=== PATIENT | male | born 1975 | race Caucasian/White ===

== ENCOUNTER 2017-10-20 06:09 | Inpatient (IN) | payer MEDICAID, OTHER ==
[2017-10-20 06:10] VITALS: BMI 25.8
[2017-10-20 06:24] VITALS: O2SAT 98
--- NOTE | 2017-10-20 06:38 | ED PDOC ---
Psych Transfer Clearance - Clearance Statement Clearance Statement: Reviewed vital signs, lab results and transfer papers. Patient clinically stable for psychiatric admission.
[2017-10-20] MEDS ORDERED: Alum-Mag Hydrox-Simethicone Susp (30 mL) PO PRN (06:43)
[2017-10-20] MEDS ORDERED: DiphenhydrAMINE 50 mg/ml Inj IM PRN (06:43)
[2017-10-20] MEDS ORDERED: Magnesium Hydroxide Susp 30 ml UD PO PRN (06:43)
--- NOTE | 2017-10-20 06:44 | PCM.BM ---
<Bailee Nuno - Last Filed: 10/20/17 06:42> Treatment Plan Problems - Problems identified on initial assessmt Medication nonadherence Date Initiated: 10/20/17 Time Initiated: 06:43 Assessment reference: NA Status: Active Hopelessness/ Helplessness Date Initiated: 10/20/17 Time Initiated: 06:43 Assessment reference: NA Status: Active Treatment assets and liabiliti Patient Assests: cooperative, ADL independent, negotiates basic needs Patient Liabilities: poor support system, substance abuse - Milieu Protocol Maintain good personal hygiene: daily Encourage regular showers, every shift Remind patient to perform daily oral care Conduct patient checks and document Observation sheet: Q15 minutes Maintain personal safety: every shift Educate patient to report safety concerns to staff, every shift Monitor environment for contraband/sharps Medication safety: Monitor for expected outcome, potential side effects: every shift, Assess barriers to learning: every shift, Assess readiness for medication education: every shift <Jonathan Tangiana - Last Filed: 10/23/17 13:47> Treatment assets and liabiliti Patient Assests: adapts well, cooperative, resourceful, self-reliant, ADL independent, negotiates basic needs, cognitively intact Patient Liabilities: poor support system, substance abuse Family Contact Family involvement: Famliy/SO not involved Family contact: Family has been contacted by patient, Patient declines to allow family contact at present - Goals for Treatment Patient goals for treatment: Patient to continue stabilization on 3NP through medication management and group/supportive therapy. Patient to be encouraged to attend groups regularly to promote self-awareness, sobriety, and improve insight , coping skills and self-esteem. Patient to be provided with referral for appropriate level of aftercare to reduce risk of future hospitalizations and ensure safety in the community. Discharge/Continuing Care - Education Needs Education Needs: Patient Medication, Patient Coping Skills, Patient Anger Management skills, Patient Community resources, Patient Aftercare Safety Plan - Discharge Discharge Criteria: Tolerates medication w/o severe side effects, Free of Suicidal thoughts, Free of agitation, Normal sleep pattern, Ability to care for self, No longer exhibiting s/s of withdrawal, Reduction of target symptoms Discharge to:: Home - Treatment Team Participation Patient/Family/SO Statement: 10/23/17 13:51 Patient attended tx team this morning to discuss progress on 3NP and aftercare. Patient initially agreeable to having referrals faxed to [facility] ( specifically/exclusively [place] location). Transcriptionist explained benefits of having referral faxed to other facilities to increase chances of acceptance into a program. Patient ambivalent but agreeable. Transcriptionist notified patient that referrals were faxed to [facility] and [facility] and explained that the [place] location no longer provides substance abuse tx. Transcriptionist offered to have referrals faxed to alternate [facility] locations. Patient stated that he has has trouble being admitted to rehabs from inpatient psychiatric units and expressed wanting to explore substance abuse tx with [facility] independently upon discharge. Transcriptionist explained that information for the rehabs that referral have been faxed to will be provided for patient upon discharge. Patient strongly encouraged to follow-up with inpatient rehabs upon discharge to maintain sobriety. Patient emphasized importance of being discharged with outpatient services to ensure safety/functioning in the community and reduce risk of future hospitalizations. Patient agreeable to [facility]. Patient reports improvement in depression and anxiety since admission. Patient denies AH/VH. Patient denies SI/HI. Patient brighter and more visible on 3NP. Patient anticipated for discharge on 10/24. Discussed with Family/SO: No Was Patient/Family/SO present at Treatment Team Meeting: Yes <Sunni Thompson - Last Filed: 10/24/17 08:44> - Diagnosis (1) Depression Status: Acute Interventions: 10/24/17 08:43 psychotherapy pharmacotherapy
[2017-10-20 08:26] LABS: HDL CHOLESTEROL 41 MG/DL (30-70)
[2017-10-20 08:37] LABS: LDL CHOLESTEROL 108 mg/dL (0-129)
--- NOTE | 2017-10-20 12:25 | PCM.PSYCH ---
Initial Psychiatric Evaluation - Initial Psychiatric Evaluation Legal Status: Capacity Chief Complaint (in patient's own words): I wanted to jump off the bridge Patient's Reaction to Hospitalization: pt requested help History of Present Illness and Precipitating Events: Patient is a 42 year old , single, unemployed, homeless, with a history of depressive disorder, opioid use disorder, cocaine use disorder who came to the ED with depressed mood and suicidal ideation pt reported he recently relapsed on heroin last use day before evaluation, ten bags, also used unspecified amount of cocaine, started to have active suicidal ideations came to hospital seeking help pt denied command hallucinations denied active suicidal ideations or plan on the unit . Current Medications: Active Medications Generic Name Dose Route Start Last Admin Trade Name Freq PRN Reason Stop Dose Admin Acetaminophen 650 mg 10/20/17 06:43 Tylenol 325mg Tab PO Q4 PRN Pain, moderate (4-7) Al Hydrox/Mg Hydrox/Simethicone 30 ml 10/20/17 06:43 Maalox Plus 30 Ml PO Q4 PRN Dyspepsia Clonidine HCl 0.1 mg 10/20/17 09:00 Catapres PO 10/23/17 09:01 Q8 ZACHARY Diphenhydramine HCl 50 mg 10/20/17 06:43 Benadryl IM Q6 PRN Extrapyramidal S/S Unable PO Diphenhydramine HCl 50 mg 10/20/17 06:43 Benadryl PO Q6 PRN Extrapyramidal Symptoms Haloperidol 5 mg 10/20/17 06:43 Haldol PO Q4 PRN Agitation Ibuprofen 800 mg 10/20/17 06:54 Motrin Tab PO 10/23/17 06:58 Q6 PRN Pain, Mild (1-3) Loperamide HCl 2 mg 10/20/17 06:54 Imodium PO Q4 PRN After Loose Bowel Movement Lorazepam 2 mg 10/20/17 06:43 Ativan IM Q4 PRN Anxiety/Agitation,Unable PO Lorazepam 1 mg 10/20/17 06:43 Ativan PO Q4 PRN Anxiety/Agitation Magnesium Hydroxide 30 ml 10/20/17 06:43 Milk Of Magnesia PO HS PRN Constipation Multivitamins/Minerals 1 tab 10/20/17 09:00 Therapeutic-M Tab PO DAILY ZACHARY Past Psychiatric History - Past Psychiatric History Explanation of prior treatment: multiple inpatient hospitalizations fro depression and detox History of ETOH/Drug Use: hx of cocaine opiate and cannabis abuse Pertinent Medical Hx (Current Medical&Sleep Prob, Allergies): Allergies Allergy/AdvReac Type Severity Reaction Status Date / Time No Known Allergies Allergy Verified 02/28/16 01:11 ARIPiprazole [Abilify] 10 mg PO HS #30 tab 05/26/17 Sertraline [Zoloft] 100 mg PO DAILY #30 tab 05/26/17 traZODone [Desyrel] 100 mg PO DAILY #30 tab 05/26/17 Mental Status Examination - Personal Presentation Personal Presentation: Looks older than stated age - Affect Affect: Constricted, Depressed - Motor Activity Motor Activity: Psychomotor Retardation - Reliability in Providing Information Reliability in Providing Information: Poor, due to altered mood - Speech Speech: Relevant - Mood Mood: Depressed, Anxious - Formal Thought Process Formal Thought Process: Circumstantial - Obsessions/Compulsions Obsessions: No Compulsions: No - Cognitive Functions Orientation: Person, Place Sensorium: Alert Attention/Concentration: Attentive Abstract Thinking: [place] Judgement: Imparied, as evidence by: Poor judgement, Imparied, as evidence by: Lack of insight into illness - Risk Risk: Withdrawal, Diminished functioning - Strength & Assets Inventory Strength & Assets Inventory: Life experience - Limitations Additional comments: homeless DSM 5 DX - DSM 5 DSM 5 Diagnosis: 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
[2017-10-20] MEDS: Multivitamin With Minerals Tab PO SCH (14:56)
[2017-10-21 06:41] LABS: T4 9.65 ug/dl (5.5-11.0)
--- NOTE | 2017-10-21 11:37 | PCM.PYCHPN ---
Psychiatric Progress Note - Psychiatric Progress Note Patient seen today, length of contact: pt evaluated discussed with team chart reviewed Patient Chief Complaint: I am so depressed, i want inpatient rehab, i cant continue like that Problems Identified/Issues Discussed: pt seen in his room isolative , continues to feel depressed, low energy, anhedonia, pt continues to have body aches because of the withdrawal discussed with pt starting inpatient rehab on discharge , pt agrees, pt denied any current suicidal or homicidal ideations denied perceptual disturbances no reported side effects of medications Medical Problems: multiple inpatient hospitalizations fro depression and detox DSM 5 Symptoms Update: cocaine induced mood disorder with depressive features on withdrawal opiate use disorder depression Medication Change: Yes (start flexeril) Medical Record Reviewed: Yes Mental Status Examination - Cognitive Function Orientation: Person, Place Attention: Poor Concentration: Poor Association: WNL Fund of Knowledge: Poor Decription of patient's judgement and insights: partial insight poor judgment - Mood Mood: Depressed, Anxious - Affect Affect: Constricted, Depressed - Speech Speech: Soft - Formal Thought Process Formal Thought Process: Circumstantial Psychotic Thoughts and Behaviors: pt denied any current perceptual disturbances, non elicited - Suicidal Ideation Suicidal Ideation: No - Homicidal Ideation Homicidal Ideation: No Goal/Treatment Plan - Goal/Treatment Plan Progress Toward Problem(s) and Goals/Treatment Plan: continue clonidine protocol and monitor vitals for symptoms and signs of withdrawal increase seroquel 200mg qhs start flexiril prn for muscle aches motivational and group therapy
--- NOTE | 2017-10-21 11:49 | CP.PCM.CON ---
History of Present Illness - History of Present Illness History of Present Illness: Reason for Consult: per hospital protocol HPI: 42M PMH substance abuse, depression, admitted to psych for depression and suicidal ideation. HD stable, NAD. No other complaints at this time. ROS: per HPI all other systems reviewed and negative PMSH: substance abuse FH: denies SH: heroin abuse, denies ETOH, tobacco 1 ppd, "many years" Meds as below Allergies: NKDA Vitals reviewed Gen: WDWN, alert, cooperative HEENT: NCAT, PERRL, EOMI HEART: +S1S2, RRR LUNG: CTAB no WRR ABD: soft NT ND no masses no HSM EXT: warm, well perfused NEURO: AAOx3, equal strength bilaterally upper and lower SKIN: warm, dry Psych: normal mood, normal affect LABS Most Recent Lab Values Hemoglobin A1c 6.3 % (4.2-6.5) 10/20/17 07:20 Triglycerides 101 mg/DL (0-149) D 10/21/17 05:40 Cholesterol 158 mg/dL (0-199) 10/21/17 05:40 LDL Cholesterol Direct 99 mg/dL (0-129) 10/21/17 05:40 HDL Cholesterol 42 MG/DL (30-70) 10/21/17 05:40 Thyroxine (T4) 9.65 ug/dl (5.5-11.0) 10/21/17 05:40 TSH 3rd Generation 0.60 mIU/ML (0.46-4.68) 10/21/17 05:40 Assessment and Plan 42M PMH substance abuse, depression, admitted to psych for depression and suicidal ideation. HD stable, NAD. No other complaints at this time. Depression and Substance Abuse management per psych Past Patient History - Infectious Disease Hx of Infectious Diseases: None - Past Social History Smoking Status: Heavy Smoker > 10 Cigarettes Daily - CARDIAC Hx Cardiac Disorders: No - PULMONARY Hx Respiratory Disorders: No Hx Tuberculosis: No - NEUROLOGICAL Hx Neurological Disorder: No - HEENT Hx HEENT Problems: No - RENAL Hx Chronic Kidney Disease: No - ENDOCRINE/METABOLIC Hx Endocrine Disorders: No - HEMATOLOGICAL/ONCOLOGICAL Hx Blood Disorders: No - INTEGUMENTARY Hx Dermatological Problems: No - MUSCULOSKELETAL/RHEUMATOLOGICAL Hx Musculoskeletal Disorders: No - GASTROINTESTINAL Hx Gastrointestinal Disorders: No - GENITOURINARY/GYNECOLOGICAL Hx Genitourinary Disorders: No - PSYCHIATRIC Hx Depression: Yes Hx Substance Use: Yes - SURGICAL HISTORY Hx Surgeries: No - ANESTHESIA Hx Anesthesia: No Meds Allergies/Adverse Reactions: Allergies Allergy/AdvReac Type Severity Reaction Status Date / Time No Known Allergies Allergy Verified 02/28/16 01:11 - Medications Medications: Current Medications Acetaminophen (Tylenol 325mg Tab) 650 mg PO Q4 PRN PRN Reason: Pain, moderate (4-7) Al Hydrox/Mg Hydrox/Simethicone (Maalox Plus 30 Ml) 30 ml PO Q4 PRN PRN Reason: Dyspepsia Clonidine HCl (Catapres) 0.1 mg PO Q8 ZACHARY Stop: 10/23/17 09:01 Last Admin: 10/21/17 09:21 Dose: 0.1 mg Cyclobenzaprine HCl (Flexeril) 5 mg PO TID PRN PRN Reason: Muscle spasm Diphenhydramine HCl (Benadryl) 50 mg IM Q6 PRN PRN Reason: Extrapyramidal S/S Unable PO Diphenhydramine HCl (Benadryl) 50 mg PO Q6 PRN PRN Reason: Extrapyramidal Symptoms Haloperidol (Haldol) 5 mg PO Q4 PRN PRN Reason: Agitation Ibuprofen (Motrin Tab) 800 mg PO Q6 PRN PRN Reason: Pain, Mild (1-3) Stop: 10/23/17 06:58 Last Admin: 10/20/17 14:55 Dose: 800 mg Loperamide HCl (Imodium) 2 mg PO Q4 PRN PRN Reason: After Loose Bowel Movement Lorazepam (Ativan) 2 mg IM Q4 PRN PRN Reason: Anxiety/Agitation,Unable PO Lorazepam (Ativan) 1 mg PO Q4 PRN PRN Reason: Anxiety/Agitation Last Admin: 10/20/17 14:55 Dose: 1 mg Magnesium Hydroxide (Milk Of Magnesia) 30 ml PO HS PRN PRN Reason: Constipation Multivitamins/Minerals (Therapeutic-M Tab) 1 tab PO DAILY [facility] Last Admin: 10/20/17 14:56 Dose: 1 tab Ondansetron HCl (Zofran Odt) 4 mg PO Q8H PRN PRN Reason: Nausea/Vomiting Quetiapine Fumarate (Seroquel) 200 mg PO HS [facility] Results - Vital Signs Recent Vital Signs: Last Vital Signs Temp 98.1 F 10/21/17 09:00 Pulse 65 10/21/17 09:21 Resp 16 10/21/17 09:00 BP 116/70 10/21/17 09:21 Pulse Ox 98 10/20/17 06:17 - Labs Labs: Laboratory Results - last 24 hr 10/20/17 10/21/17 07:20 05:40 Hemoglobin A1c 6.3 Triglycerides 101 D Cholesterol 158 LDL Cholesterol Direct 99 HDL Cholesterol 42 Thyroxine (T4) 9.65 TSH 3rd Generation 0.60
[2017-10-21] MEDS: Multivitamin With Minerals Tab PO SCH (13:57)
[2017-10-22] MEDS: Multivitamin With Minerals Tab PO SCH (10:14)
--- NOTE | 2017-10-22 10:44 | PCM.PYCHPN ---
Psychiatric Progress Note - Psychiatric Progress Note Patient seen today, length of contact: pt evaluated discussed with team chart reviewed Patient Chief Complaint: I AM VERY WEAK AND TIRED Problems Identified/Issues Discussed: pt seen in his room continues to be isolative , reported feeling depressed, low energy, anhedonia, pt continues to have body aches because of the withdrawal discussed with pt starting inpatient rehab on discharge , pt agrees, pt denied any current suicidal or homicidal ideations denied perceptual disturbances no reported side effects of medications Medical Problems: multiple inpatient hospitalizations fro depression and detox Medication Change: No Medical Record Reviewed: Yes Mental Status Examination - Cognitive Function Orientation: Person, Place Attention: Poor Concentration: Poor Association: WNL Fund of Knowledge: Poor Decription of patient's judgement and insights: partial insight poor judgment - Mood Mood: Depressed, Anxious - Affect Affect: Constricted, Depressed - Speech Speech: Soft - Formal Thought Process Formal Thought Process: Circumstantial Psychotic Thoughts and Behaviors: pt denied any current perceptual disturbances, non elicited - Suicidal Ideation Suicidal Ideation: No - Homicidal Ideation Homicidal Ideation: No Goal/Treatment Plan - Goal/Treatment Plan Need for Continued Stay: Severe depression anxiety, Discharge may exacerbated symptoms Progress Toward Problem(s) and Goals/Treatment Plan: start neurontin 100mg tid prn for anxiety icontinue with seroquel 200mg qhs and flexiril prn for muscle aches motivational and group therapy Estimated Date of D/C: 10/25/17
[2017-10-23] MEDS: Multivitamin With Minerals Tab PO SCH (08:37)
--- NOTE | 2017-10-23 12:11 | PCM.PYCHPN ---
Psychiatric Progress Note - Psychiatric Progress Note Patient seen today, length of contact: pt evaluated discussed with team chart reviewed Patient Chief Complaint: when I leave here I want to join [employer] Problems Identified/Issues Discussed: pt seen in treatment team, presenting with irritable mood and affect, pt reported continues to feel down, discussed with pt impact of drug withdrawal on his mood, pt showing limited insight into his illness , needs a lot of encouragment to attend groups, continues to be isolative in his room discussed with pt increasing seroquel for mood stabilization pt denied side effects of medications,denied any current suicidal or homicidal ideations, denied perceptual disturbances no reported changes in sleep or appetite Medical Problems: multiple inpatient hospitalizations fro depression and detox DSM 5 Symptoms Update: cocaine induced mood disorder with depressiove features cocaine use disorder opiate use disorder hx of bipolar disorder Medication Change: Yes (increase seroquel) Medical Record Reviewed: Yes Mental Status Examination - Cognitive Function Orientation: Person, Place Attention: WNL Concentration: WNL Association: WNL Fund of Knowledge: Poor Decription of patient's judgement and insights: partial insight poor judgment - Mood Mood: Depressed, Anxious - Affect Affect: Constricted, Depressed - Speech Speech: Appropriate - Formal Thought Process Formal Thought Process: Circumstantial Psychotic Thoughts and Behaviors: pt denied any current perceptual disturbances, non elicited - Suicidal Ideation Suicidal Ideation: No - Homicidal Ideation Homicidal Ideation: No Goal/Treatment Plan - Goal/Treatment Plan Need for Continued Stay: Severe depression anxiety, Discharge may exacerbated symptoms Progress Toward Problem(s) and Goals/Treatment Plan: continue neurontin 100mg tid prn for anxiety increase seroquel to 300mg qhs , continue flexiril prn for muscle aches motivational and group therapy Estimated Date of D/C: 10/25/17
[2017-10-23] MEDS ORDERED: QUEtiapine 300 MG TABLET PO SCH (22:00)
--- NOTE | 2017-10-24 09:01 | PCM.PYCHDC ---
Mental Status Examination - Mental Status Examination Orientation: Person, Place, Situation Memory: Intact Mood: Neutral Affect: Broad Speech: Appropriate Attention: WNL Concentration: WNL Association: WNL Fund of Knowledge: Poor Formal Thought Process: Circumstantial Description of patient's judgement and insight: partial insight poor judgment Psychotic Thoughts and Behaviors: pt denied any current perceptual disturbances, non elicited Suicidal Ideation: No Current Homicidal Ideation?: No Discharge Summary - Discharge Note Reason for Hospitalization: pt requested help Patient is a 42 year old , single, unemployed, homeless, with a history of depressive disorder, opioid use disorder, cocaine use disorder who came to the ED with depressed mood and suicidal ideation pt reported he recently relapsed on heroin last use day before evaluation, ten bags, also used unspecified amount of cocaine, started to have active suicidal ideations came to hospital seeking help pt denied command hallucinations denied active suicidal ideations or plan on the unit . Consultations:: List each consultation separately and include: 1. Reason for request. 2. Findings. 3. Follow-up Summary of Hospital Course include:: 1. Description of specific treatment plan utilized for patients during their course of treatmen. 2. Summarize the time- course for resolution of acute symptoms and/or regressed behaviors. 3. Describe issues identified and worked on during hospitalization. 4. Describe medication utilized. 5. Describe medical problems identified and treated. 6. Reassessment of suicide risk Summary of Hospital Course: Patient was started on clonidine protocol for symptoms and signs of opiate withdrawal pt wasl started on neurontin and seroquel for depression and mood stabilization motivational andd group therapy provided on discharge pt was educated about the risk of relapse and possible accidental overdose pt mental ststus on discharge was stable, denied suicidal or homicidal ideations denied perceptual disturbances referral made by 7th grade social studies teacher for inpatient reahb - Diagnosis (1) Depression Current Visit: Yes Status: Acute - Final Diagnosis (DSM 5) Condition upon Discharge: STABLE DSM 5: 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
[2017-10-24 09:09] VITALS: BP 137/78; PULSE 69; RESP 18; TEMP 97.9
[2017-10-24] MEDS: Multivitamin With Minerals Tab PO SCH (09:17)
== END 2017-10-24 12:12 | disposition home or self-care (01) | DRG 897 ==
LOC: H.ER 06:09 → H.PSYCH 06:24
PROVIDERS: ADMIT Psychiatry & Neurology Psychiatry; ATTEND Psychiatry & Neurology Psychiatry
PROC: GZ51ZZZ Individual Psychotherapy, Behavioral (ICD-10-PCS; 2017-10-20)
PROC: GZHZZZZ Group Psychotherapy (ICD-10-PCS; principal; 2017-10-23)
DX: F14.14 Cocaine abuse with cocaine-induced mood disorder (principal); F11.10 Opioid abuse, uncomplicated; R45.851 Suicidal ideations; F31.9 Bipolar disorder, unspecified; F41.9 Anxiety disorder, unspecified; Z59.0 Homelessness; F12.10 Cannabis abuse, uncomplicated; F17.200 Nicotine dependence, unspecified, uncomplicated